=== PATIENT | female | born 1950 | race Caucasian/White ===

== ENCOUNTER → 2016-10-29 | Outpatient (CLI) | payer OTHER ==
[~2016-10-29] MED LIST: ACETAMINOPHEN325 MG PO; AGGRENOX PO; AGGRENOX1 CAP PO; ASPIRIN81 MG PO; ASPIRINEC PO; CLOPIDOGREL75 MG PO; CRESTOR PO; FIORICET 50-321 EACH PO; KEPPRA750 MG PO; LIPITOR; MEDROL DOSEPAK4 MG DOB; MEDROL DOSEPAK4 MG PO; NEURONTIN600 MG PO; NEXIUM PO; NORCO1 TAB 10/3 PO; PREMARIN; TIZANIDINE HCL4 M1 PO; TOPAMAX PO; TOPROL XL PO; ZANAFLEX4 M1 PO; ZOCOR PO
[2016-10-29 11:06] LABS: BASOPHIL# 0.1 X10e3 (0-0.3); BASOPHIL% 0.7 % (0-2.5); EOSINOPHIL# 0.1 X10e3 (0-0.7); EOSINOPHIL% 1.2 % (0.0-7.0); HEMATOCRIT 48.2 % (35.0-45.0); HEMOGLOBIN 15.6 gm/dL (12.0-16.0); LYMPHOCYTE# 2.8 X10e3 (1.0-3.5); LYMPHOCYTE% 25.1 % (17.0-45.0); MEAN CELL VOLUME 92.4 FL (83-96); MEAN CORPUSCULAR HGB CONC 32.4 g/dL (30-36); MEAN PLATELET VOLUME 10.4 FL (6.5-11.5); MONOCYTE# 0.9 X10e3 (0-1.0); MONOCYTE% 8.5 % (3.0-12.0); NEUTROPHIL# 7.2 X10e3 (1.5-7.1); NEUTROPHIL% 64.5 % (40-75); PLATELET COUNT 215 X10e3 (140-420); RED BLOOD COUNT 5.21 X10e (3.90-5.30); RED CELL DISTRIBUTION WIDTH 13.5 % (11.0-15.5); WHITE BLOOD COUNT 11.2 X10e3 (4.0-10.5)
[2016-10-29 11:08] LABS: DIFF IND NO
[2016-10-29 11:52] LABS: BILIRUBIN,TOTAL 0.6 mg/dL (0.2-2.0); BUN/CREATININE RATIO 19.16; CALCIUM SERUM 9.7 mg/dL (8.4-10.2); CREATININE SERUM 1.2 mg/dL (0.6-1.4); GLOM FILT RATE Estimated 47.4 mL/min (>60); POTASSIUM 4.7 mmol/L (3.5-5.1); PROTEIN TOTAL SERUM 7.1 g/dL (6.0-8.3)
== END | disposition home or self-care (01) ==
LOC: CLAB 10:35
PROVIDERS: Internal Medicine Nephrology
DX: E78.5 Hyperlipidemia, unspecified (principal); N18.3 Chronic kidney disease, stage 3 (moderate)
CPT/HCPCS: 36415; 80053; 80061; 82550; 85025

== ENCOUNTER → 2016-12-09 | Outpatient (CLI) | payer OTHER ==
--- NOTE | ~2016-12-09 | US128 ---
[id number] [facility] [address] [place], [place] [address] [id number] O MR#: [id number] Acc #: [id number] NAME: KRISTIAN CABALLERO : 1950 SEX: F STUDY DATE/TIME: 12/09/2016 12:33 UNIT: [facility]US ROOM: STUDY DESCRIPTION: US Thyroid Attending Physician: Jassi Williamson M.D. Referring Physician: Jassi Williamson M.D. Ordering Physician: Jassi Williamson M.D. Primary Care Physician: Ramakrishna Turner M.D. MEDICAL IMAGING REPORT This report is preliminary unless electronic signature is present EXAM Thyroid ultrasound INDICATION Thyroid nodule. The patient was noted to have thyroid nodules on a prior CT of the head and neck performed January 11, 2015. She then had a thyroid ultrasound on February 06, 2015, which showed right thyroid nodules. TECHNIQUE Grayscale and color Doppler sonographic images were obtained through the thyroid gland. FINDINGS Right lobe of the thyroid gland measures 2.2 x 5.0 x 2.3 cm. Left lobe measures 2.1 x 5.2 x 2.6 cm. Isthmus measures about 6 mm in thickness. Thyroid parenchyma is very heterogeneous. The patient is noted to have a calcified nodule with posterior shadowing seen within the right lobe which measures up to 1.2 x 1.0 x 1.3 cm. This is not significantly changed when compared to the prior examination. Superior to it, a second and predominantly cystic nodule is seen measuring 4 x 4 x 5 mm in size, not significantly changed when compared to the prior examination. Within the left lobe of the thyroid gland, there is a somewhat irregularly marginated cyst measuring about 3 x 5 x 6 mm. This is also not significantly changed when compared to the prior ultrasound. IMPRESSION 1. Enlarged heterogeneous thyroid gland is unchanged when compared to prior studies. 2. Densely peripherally calcified structure within the inferior pole of the right lobe of the thyroid gland has been unchanged when compared to exams dating back to February of 2015, and is favored to be benign. There are also two additional cysts noted, one within the right lobe of the thyroid gland and the other seen on the left. These also appear stable when compared to prior studies. Dictated by... Maya Zhou M.D. THIS IS AN ELECTRONICALLY VERIFIED REPORT Maya Zhou M.D. at 12/12/2016 3:40 PM AFF/ea TD: 12/10/2016 20:30 JOB #: [id number] MEDICAL IMAGING REPORT Page 1 of 1 COPY
== END | disposition home or self-care (01) ==
LOC: CGUS 12:03
DX: E04.1 Nontoxic single thyroid nodule (principal); E07.89 Other specified disorders of thyroid
CPT/HCPCS: 76536